=== PATIENT | female | born 1995 | race Caucasian/White ===

== ENCOUNTER 2020-04-11 20:50 | Emergency (ER) | payer BC ==
[~2020-04-11] VITALS: Ht 177.8 cm; Wt 73.5 kg
== END 2020-04-11 23:30 | disposition home or self-care (01) ==
LOC: ED 20:50
PROC: 0HQ1XZZ Repair Face Skin, External Approach (ICD-10-PCS; principal; 2020-04-11)
DX: S01.81XA Laceration without foreign body of other part of head, initial encounter (principal); Z23 Encounter for immunization; Z88.2 Allergy status to sulfonamides; W01.190D Fall on same level from slipping, tripping and stumbling with subsequent striking against furniture, subsequent encounter
CPT/HCPCS: 12013; 90471; 90715; 99282-25